=== PATIENT | female | born 2000 | race Caucasian/White ===

== ENCOUNTER 2024-11-30 10:59 | Emergency (ER) | payer MEDICAID ==
[~2024-11-30] VITALS: Ht 154.9 cm; Wt 50.0 kg
[2024-11-30 11:50] LABS: LEUKOCYTE ESTERASE ,URINE NEGATIVE (Neg); NITRITES, URINE NEGATIVE (Neg); OCCULT BLOOD,URINE MODERATE (Neg)
[2024-11-30 11:51] LABS: URINE HCG NEGATIVE (NEG)
[2024-11-30 12:00] LABS: SQUAMOUS EPITHELIAL CELL,UR FEW /LPF (FEW); UA COLLECTION TYPE CLN CATCH MIDSTREAM
[2024-11-30] MEDS: ondansetron/PF 4mg/2ml inj IV ONE (12:54)
[2024-11-30] MEDS: normal saline 1000ML IV soln IVB ONE (12:55)
[2024-11-30] MEDS: ketorolac trometh 15mg/ml vial 15 MG/ML ML IV ONE (12:55)
--- NOTE | 2024-11-30 12:57 | Physician Documentation ---
History of Present Illness ~ Chief Complaint: Abdominal Pain Stated Complaint: BLADDER AND BACK PAIN Time Seen by MD: 12:01 Source: patient Mode of Arrival: Ambulatory Exam Limitations: no limitations HPI Chief Complaint: Back pain Caveat: None Independent Historians: Significant other History of Present Illness: Patient is a 24-year-old woman who comes in complaining of back pain. Pain is over the mid right lower back. Pain began very early this morning and got progressively worse. Patient's seems like she is half asleep and is on something. Patient denies taking anything for her pain. Patient has had nausea and dry heaves this morning no diarrhea. No known fever. When asked if she has dysuria urgency she says no but then states that hurts in her urethra. Patient states that she has had this before. Patient states that she has been on acyclovir for herpes for two months. But then states that it is highly unlikely that she has an STD. Patient denies any rash around her perineum or vagina. Patient states that she has a vaginal discharge. Review of systems: All systems were reviewed and are negative except for what is indicated in the history of present illness. Past Medical History: Genital herpes, POTS, Simone-Danlos syndrome Past Surgical History: None Social History: Denies drug use or alcohol use. Denies meth use Medications: Reviewed as documented Nursing Notes Allergies: Reviewed as documented in Nursing Notes Medication Reconciliation Allergies: Coded Allergies: Penicillins (Verified Allergy, Unknown, 11/30/24) Review of Systems All Other Systems at this time: Reviewed and Negative ROS Patient denies any other acute symptoms other than above. All other systems are negative Physical Exam Vital Signs: RN Vital Signs have been reviewed: Yes, Temperature: 97.6, Source: Oral, Heart Rate: 62, Respiratory Rate: 12, BP: 127/80, Pulse Oximetry: 99, Weight: 50.000 Oxygen Flow Rate: 0 Pulse Oximetry Reflects: adequate oxygenation Physical Exam General Appearance: Mild distress HEENT: Normal OP, moist oral mucosa, PERRL, EOMI Neck: supple, normal ROM, trachea midline Pulmonary: No respiratory distress, CTA, BS equal Cardiac: RRR, no murmur, rub or gallop, GI: nondistended, soft, nontender, normal bowel sounds, no guarding, no rebound : No CVA tenderness. Back: Outwardly normal-appearing, questionable CVA tenderness Extremities: normal ROM, no swelling, non-tender Skin: intact, dry, warm, no rashes Neuro: Lethargy versus patient being uncooperative, speech is clear, no focal motor weakness Psych: normal affect, good eye contact, no apparent hallucination, normal speech Progress Results/Orders Results/Orders Orders - EDMOND GUARDADO MD Ed Iv Pain Medications (11/30/24 12:45) Monitor (11/30/24 12:45) Saline Lock (11/30/24 12:45) Straight Cath For Urine Sample (11/30/24 12:45) Completed Orders - EDMOND GUARDADO MD Hcg, Ur Ql (11/30/24 11:23) Ua W/Microscopic, Cult If Ind (11/30/24 11:21) Cbc/Diff (11/30/24 12:45) Lipase (11/30/24 12:45) Ondansetron Inj. (Zofran 4mg/2ml Vial) (11/30/24 12:45) Normal Saline 1000ml (0.9% Sodium Chlori (11/30/24 12:45) Ketorolac Trometh 15mg/Ml Vial (Toradol (11/30/24 12:45) CMP (11/30/24 12:45) Drug Screen, Urine (11/30/24 14:03) Medications Received in ER Medications (Trade) Dose Ordered Sig/Forrest Route PRN Reason Start Time Stop Time Status Last Admin Dose Admin (Zofran 4mg/2ml vial) 4 mg ONCE ONCE IV 11/30/24 12:45 11/30/24 12:48 DC 11/30/24 12:54 4 MG (0.9% sodium chloride (NS) 1000ml IV soln) 1,000 ml ONCE ONCE IVB 11/30/24 12:45 11/30/24 12:48 DC 11/30/24 12:55 1,000 ML (Toradol injection) 15 mg ONCE ONCE IV 11/30/24 12:45 11/30/24 12:48 DC 11/30/24 12:55 15 MG Vital Signs 11/30/24 11/30/24 11/30/24 11/30/24 11:16 11:57 12:16 13:15 Temp 97.6 Pulse 71 62 56 Resp 17 12 12 B/P (MAP) 139/82 127/80 (96) 118/69 (85) Pulse Ox 100 99 99 O2 Flow Rate 0 0 0 11/30/24 11/30/24 11/30/24 14:15 15:15 15:42 Temp 97.6 Pulse 84 82 82 Resp 14 14 18 B/P (MAP) 101/54 (70) 113/53 (73) 116/53 Pulse Ox 99 100 97 O2 Flow Rate 0 0 Laboratory Tests Test 11/30/24 11:21 11/30/24 12:56 11/30/24 14:58 Urine Specimen Description Cln catch midstream Urine Color Yellow Urine Clarity Clear Urine pH 7.0 Urine Specific [place] 1.025 Urine Protein 30 H Urine Glucose (UA) 100 H Urine Ketones 40 H Urine Occult Blood Moderate H Urine Nitrite Negative Urine Bilirubin Small Urine Urobilinogen 1.0 Urine Leukocyte Esterase Negative Urine RBC 3-10 Urine WBC 0-4 Urine Squamous Epithelial Cells Few Urine Bacteria Few Urine Culture Indicated Not ind Volume Urine Centrifuged 10 ml Urine HCG, Qualitative Negative Urine Comment White Blood Count 10.6 Red Blood Count 4.90 Hemoglobin 14.8 Hematocrit 43.3 Mean Corpuscular Volume 88.4 Mean Corpuscular Hemoglobin 30.2 Mean Corpuscular Hemoglobin Concent 34.2 Red Cell Distribution Width 13.4 Platelet Count 277 Mean Platelet Volume 8.1 Neutrophils (%) (Auto) 77.6 H Lymphocytes (%) (Auto) 14.5 L Monocytes (%) (Auto) 6.6 Eosinophils (%) (Auto) 0.8 Basophils (%) (Auto) 0.5 Neutrophils # (Auto) 8.2 H Lymphocytes # (Auto) 1.5 Monocytes # (Auto) 0.7 Eosinophils # (Auto) 0.1 Basophils # (Auto) 0.1 CBC Comment Sodium Level 143 Potassium Level 3.7 Chloride Level 105 Carbon Dioxide Level 25.9 Anion Gap 12 Blood Urea Nitrogen 15 Creatinine 1.03 H Estimated GFR/1.73 m2 66 BUN/Creatinine Ratio 14.6 Glucose Level 119 H Calcium Level 9.4 Total Bilirubin 0.5 Aspartate Amino Transf (AST/SGOT) 28 Alanine Aminotransferase (ALT/SGPT) 29 Alkaline Phosphatase 66 Total Protein 7.2 Albumin 3.6 Globulin 3.6 Albumin/Globulin Ratio 1.0 L Lipase 18 Chemistry Comments Urine Opiates Screen Negative Urine Methadone Screen Negative Urine Fentanyl Screen Negative Urine Barbiturates Screen Negative Urine Phencyclidine Screen Negative Urine Amphetamines Screen Negative Urine Benzodiazepines Screen Negative Urine Cocaine Screen Negative Urine Cannabinoids Screen Positive H Drug Screen Comment Medical Decision Making Findings Differential diagnosis includes but is not limited to: STD, herpes, bacterial vaginitis, urinary tract infection, pyelonephritis, ureteral colic Laboratory data independent interpretation: CBC: Unremarkable CMP: Unremarkable Urinalysis: Remarkable for ketones, glucose high, red blood cells 3-5, white blood cells 0-4, nitrite negative. Urine : Negative Emergency department course/medical decision-making: Patient's mental status seems to be lethargy, somnolence. Patient's abdominal exam and flank exam is confusing but seems unremarkable. Patient is given Toradol for pain. 3:15 p.m.: Patient re-evaluated. Patient is now awake and alert. Patient states that she vaguely recalls speaking with me when I 1st evaluated her. Patient's pain has resolved. She has no abdominal pain, no flank pain and no urethral pain. Patient's lab work is unremarkable. Patient states that the last time she had urethral pain that she had a urinary tract infection. However that does not appear to be the case at this time. Patient is afebrile and hemodynamically stable. Patient states that her vaginal discharge that she has is her normal discharge. She does not feel that she requires a pelvic exam at this time. There was no evidence of a medical or surgical emergency. Patient is going to be discharged home. She is instructed to take Advil and Tylenol if she has any recurrent pain. Departure Time of Disposition: 15:23 Disposition: 01 HOME / SELF CARE / HOMELESS Impression: Primary Impression: Flank pain, left side Additional Impressions: Urethral pain Abdominal pain of unknown cause Condition: Improved Discharge Instructions: Flank Pain, Adult, [id number] Additional Instructions: IT IS POSSIBLE THAT YOU COULD HAVE A KIDNEY STONE OR A STONE IN THE URETER. RETURN TO THE ER IF YOUR SYMPTOMS WORSEN. FOLLOW UP WITH YOUR PRIMARY CARE DOCTOR NEEDED Education Educated: Patient Educated regarding: diagnosis, treatment, need for follow up Signature Scribe Signature: NO SCRIBE Attestation: NO SCRIBE EDMOND GUARDADO MD Nov 30, 2024 12:57
[2024-11-30 13:21] LABS: MEAN PLATELET VOLUME 8.1 FL (7.4-10.4); RED CELL DISTRIBUTION WIDTH 13.4 % (11.5-14.5)
[2024-11-30 13:39] LABS: CREATININE 1.03 MG/DL (0.40-0.90); TOTAL CARBON DIOXIDE 25.9 MMOL/L (24-32); eCRCL 64 ML/MIN; eGFR 66 ML/MIN
[2024-11-30 15:24] LABS: URINE AMPHETAMINE SCREEN NEGATIVE (Neg); URINE BARBITUATE SCREEN NEGATIVE (Neg); URINE BENZODIAZEPINES SCREEN NEGATIVE (Neg); URINE CANNABINOID SCREEN POSITIVE (Neg); URINE COCAINE SCREEN NEGATIVE (Neg); URINE METHADONE SCREEN NEGATIVE (Neg); URINE OPIATE SCREEN NEGATIVE (Neg); URINE PHENCYCLIDINE SCREEN NEGATIVE (Neg)
[2024-11-30 15:42] VITALS: BP 116/53; PULSE 82; RESP 18; TEMP 97.6; O2SAT 97
== END 2024-11-30 15:40 | disposition home or self-care (01) ==
LOC: ER 11:00
DX: R10.9 Unspecified abdominal pain (principal); N89.8 Other specified noninflammatory disorders of vagina; Z88.0 Allergy status to penicillin
CPT/HCPCS: 36415; 80053; 80305; 81001; 81025; 83690; 85025; 96361; 96374; 96375; 99285; J1885; J2405; J7030